=== PATIENT | male | born 1980 | race Hispanic/Latino ===

== ENCOUNTER 2017-04-01 10:10 | Emergency (ER) | payer SELFPAY ==
[2017-04-01 10:28] VITALS: BP 134/79
--- NOTE | 2017-04-01 11:39 | Emergency Department Report ---
ED Neck Pain HPI Chief Complaint: Neck Pain/Injury Stated Complaint: NECK PAIN Time Seen by Provider: 04/01/17 11:22 Duration: 1 month Neck Pain Location: Posterior Neck, Trapezius (right side) Severity: moderate Mechanism: Fall (fell on trampolin and landed on head) Symptoms: Yes Pain with Movement (neck rotation to right), No Radiation to Left Upper Ext, No Radiation to Right Upper Ext, No Numbness, No Weakness, No Previous History Other History: This is a 36 y.o. male presents with neck pain from fall 1 month ago. Patient states he was playing on the [employer] with children at home 2017. He was doing a back flip and landed on neck. He is taking ibuprofen for pain which improves pain as the day go by but every morning his neck is stiff and in severe pain. Pain is 8/10 on scale in the morning. Right now pain is 2/ 10 and tolerable. He changed his pillow yesterday and woke up this morning feeling better than usual since the accident. Denies numbness, tingling, chest pain, or shoulder pain. ED Review of Systems ROS: Stated complaint: NECK PAIN Other details as noted in HPI Constitutional: denies: chills, fever ENT: denies: ear pain, throat pain Respiratory: denies: cough, shortness of breath, wheezing Cardiovascular: denies: chest pain, palpitations Gastrointestinal: denies: abdominal pain, nausea, diarrhea Musculoskeletal: arthralgia (neck pain, worse on the right with movement), myalgia (lower neck on the right with rotation to right that radiates to right mid shoulder) Neurological: denies: headache, weakness, paresthesias ED Past Medical Hx - Past Medical History Previous Medical History?: No - Social History Smoking Status: Current Every Day Smoker - Medications Home Medications: Home Medications Medication Instructions Recorded Confirmed Last Taken Type Ibuprofen 800 mg PO Q6H PRN #20 tablet 04/01/17 Unknown Rx tiZANidine [Zanaflex] 4 mg PO TID PRN #20 tablet 04/01/17 Unknown Rx Neck Pain Exam - Exam General: Vital signs noted. No distress. Alert and acting appropriately. HEENT: No Facial Pain, No Scalp Tenderness, No Contusion, No Abrasion, No Laceration Neck Pain: Yes Right Trapezius Tenderness, Yes Pain with Rotation Left, Yes pain with R Lateral Flexion, No Midline Tenderness, No Right Paraspinal Tenderness, No Left Paraspinal Tenderness, No Left Trapezius Tenderness, No Pain with Rotation Right, No Pain with Extension, No Pain with Flexion, No Pain with L Lateral Flexion Chest: Yes Clear Lung Sounds, No Pain with Respirations Heart: Yes Regular, No Murmur Back: No Thoracic Tenderness, No Lumbar Tenderness Neuro: Yes Normal Reflexes, No Numbness, No Weakness, No Radicular Deficits ED Course Vital Signs 04/01/17 10:22 Temperature 97.8 F Pulse Rate 88 Respiratory 16 Rate Blood Pressure 134/79 O2 Sat by Pulse 97 Oximetry ED Medical Decision Making - Radiology Data Radiology results: image reviewed C-Spine IMPRESSION: Normal C-spine. - Medical Decision Making This is a 36 y.o. male that presents with neck pain worse at right trapezius muscle. He is taking ibuprofen for pain. C-spine of neck obtained and reviewed by radiologist and normal. Patient informed of labs. Assessment susceptible of muscle strain of right trapezius muscle. Treat outpatient with heat and NSAID' s. Discussed plan of care with patient and agreed with plan. Discharged home in stable condition. F/U with primary care provider. Critical care attestation.: If time is entered above; I have spent that time in minutes in the direct care of this critically ill patient, excluding procedure time. ED Disposition Clinical Impression: Strain of cervical portion of right trapezius muscle, Neck pain Disposition: - TO HOME OR SELFCARE Is pt being admited?: No Does the pt Need Aspirin: No Condition: Stable Instructions: Muscle Strain (ED), Neck Exercises (GEN) Additional Instructions: Rest Use ice or heat on affected area for 20 minutes and off for 2 hours. Take pain medication as needed for pain. Don't drive or operate heavy machinery while taking muscle relaxers because they may cause drowsiness. Follow up with Primary Care Provider. Prescriptions: Ibuprofen 800 mg PO Q6H PRN #20 tablet PRN Reason: Pain tiZANidine [Zanaflex] 4 mg PO TID PRN #20 tablet PRN Reason: Muscle Spasm Referrals: ADRIANE FU MD [Staff Physician] - 3-5 Days [facility] [Outside] - 3-5 Days Forms: Work/School Release Form(ED) Time of Disposition: 12:43 Print Language: PAK[place]ANI
[2017-04-01] MEDS ORDERED: TORADOL IM ONE (11:48)
--- NOTE | 2017-04-01 11:49 | XRay Report ---
CERVICAL SPINE SERIES THREE VIEWS: 04/01/17 10:10:00 CLINICAL: Neck pain. FINDINGS: The chin is tucked in the position. Normal vertebral body height, alignment and disk spaces. No fracture or subluxation. Normal odontoid and C1. Normal airway and soft tissues. IMPRESSION: Normal C-spine.
--- NOTE | 2017-04-01 12:34 | Emergency Department Report ---
Chief Complaint: Neck Pain/Injury Stated Complaint: NECK PAIN Time Seen by Provider: 04/01/17 11:22 - HPI History of Present Illness: The patient's 36-year-old male who presents for evaluation of neck pain. He reports right-sided lower neck in shoulder pain for the past 3-4 weeks. She denies trauma, paresthesias, motor deficit, or other focal neurological deficits. - Exam Vital Signs: Vital Signs 04/01/17 04/01/17 10:22 11:57 Temperature 97.8 F Pulse Rate 88 Respiratory 16 18 Rate Blood Pressure 134/79 O2 Sat by Pulse 97 Oximetry MSE screening note: Focused history and physical exam performed. Due to findings the following was ordered: X-ray of the neck to rule out cervical injury, patient given pain medicine. ED Disposition for MSE Condition: Stable Referrals: PRIMARY CARE, [Primary Care Provider] - 3-5 Days
== END 2017-04-01 12:52 | disposition home or self-care (01) ==
LOC: ED 10:10
DX: S16.1XXA Strain of muscle, fascia and tendon at neck level, initial encounter (principal); F17.200 Nicotine dependence, unspecified, uncomplicated; X58.XXXA Exposure to other specified factors, initial encounter; Y93.89 Activity, other specified; Y92.89 Other specified places as the place of occurrence of the external cause; Y99.8 Other external cause status
CPT/HCPCS: 72040; 96372; 99283; J1885